=== PATIENT | male | born 1940 | race Hispanic/Latino ===

== ENCOUNTER 2020-09-25 08:33 | Day surgery (SDC) | payer MEDICARE ==
[2020-09-25] MEDS ORDERED: ASPIRIN EC 325 MG TAB PO SCH (09:30)
[2020-09-25 09:32] LABS: Hematocrit 43.8 % (35.5-45.6); Mean Corpuscular HGB Conc 34 % (32-34); Mean Corpuscular Volume 97 fl (84-94); Platelet Count 198 K/mm3 (140-440); Red Blood Count 4.53 M/mm3 (3.65-5.03); Red Cell Distribution Width 13.4 % (13.2-15.2)
[2020-09-25 09:47] LABS: BUN/Creatinine Ratio 17; Blood Urea Nitrogen 15 mg/dL (9-20); Calcium 9.3 mg/dL (8.4-10.2); Hemolysis Index 7
[2020-09-25 09:54] LABS: Partial Thromboplastin Time 30.9 Sec. (24.2-36.6)
[2020-09-25] MEDS ORDERED: SODIUM CHLORIDE 0.9% 500 ML 500 ML IV SCH (10:00)
[2020-09-25] MEDS ORDERED: HEPARIN/NS 5000 UNIT/500ML 1,000 ML IR ONE (10:53)
[2020-09-25] MEDS ORDERED: HEPARIN 10,000 UNITS/10 ML VIAL ONE (10:53)
[2020-09-25] MEDS ORDERED: MIDAZOLAM 2 MG/2 ML INJ ONE (10:54)
[2020-09-25] MEDS ORDERED: LIDOCAINE (2%) 20 MG/1 ML VIAL 20 ML MDV INFILTRATI ONE (10:54)
[2020-09-25] MEDS ORDERED: fentaNYL 100 MCG/2 ML INJ ONE (10:54)
[2020-09-25] MEDS ORDERED: VERAPAMIL 5 MG/2 ML INJ ONE (10:54)
--- NOTE | 2020-09-25 12:27 | Cardiac Catherization Report ---
INDICATION FOR PROCEDURE: The patient is a 79-year-old gentleman with a history of palpitations, underwent stress EKG performed in the office and the patient was noted to have frequent ventricular ectopy in bigeminal pattern. Stress EKG showed evidence of mild ischemia. The patient exercised for 6 minutes on standard Bill protocol, attained a heart rate of 150 beats per minute, systolic blood pressure was 222 mmHg. [address] showed mild ST-T changes suggestive of ischemia. Hence, scheduled for cardiac catheterization for definitive diagnosis and treatment. The patient is aware of the procedure, potential complications and the alternatives of therapy available. DESCRIPTION OF PROCEDURE: The patient was brought to the catheterization laboratory in a fasting condition. The patient was evaluated for moderate sedation and was felt to be appropriate candidate for moderate sedation and received IV Versed and fentanyl. Subsequently, the patient was prepared in standard fashion. Local anesthesia was given in the right wrist area and right radial artery puncture was made using 21-gauge arterial puncture needle. A 5-Jamaican slender sheath was introduced. Received 5 mg of intra-arterial verapamil and 3000 units of intravenous heparin. Subsequently, using 5-Jamaican multipurpose, left coronary angiography was performed in multiple views followed by angiograms of the right coronary artery and subsequently left ventriculogram was performed in SON projection using hand injection. At the end of the procedure, catheter and sheath were removed and good hemostasis was achieved with radial band. The patient was monitored throughout the procedure with pulse oximetry, EKG monitoring and hemodynamic monitoring. At the end of the procedure, patient is breathing normally, communicating normally with no focal deficits. The patient's moderate sedation monitoring started at 11:28 a.m. and ended at 11:45 a.m. The patient was transferred to the outpatient area in a stable condition. Findings were explained to the patient in detail. Following findings were noted. HEMODYNAMICS: 1. Opening aortic pressure 128/62. Left ventricular pressure 129/19. No gradient across the aortic valve. Estimated ejection fraction 55%. 2. Left ventriculogram done in SON projection showed normal sized left ventricle with normal contractility. End-diastolic pressure is mildly elevated. Mitral regurgitation could not be evaluated because of limited amount of dye. 3. Right coronary artery arises normally from right coronary cusp. This is a small nondominant vessel, angiographically smooth and normal. 4. Left coronary artery arises normally from left coronary cusp. This is dominant vessel. Left main, LAD and its branches, circumflex artery and its branches are angiographically smooth and normal. FINAL IMPRESSION: 1. Normal sized left ventricle with normal contractility with mildly elevated end-diastolic pressure. 2. Normal coronary anatomy angiographically. 3. Right radial artery was used for access and no untoward complications were noted. 4. The patient tolerated moderate sedation without any side effects. The patient will be continued on risk factor modification at this point and findings were explained to the patient. He understands. JOB# [id number] FAUSTO/NTS
--- NOTE | 2020-09-25 13:48 | Short Stay Summary ---
Short Stay Documentation Date of service: 09/25/20 - History H&P: obtained from office - Allergies and Medications Current Medications: Allergies No Known Allergies Allergy (Unverified 09/25/20 08:40) Home Medications Medication Instructions Recorded Confirmed Last Taken Type Aspirin [Adult Aspirin] 81 mg PO DAILY 09/25/20 09/25/20 09/24/20 History Cholecalciferol Vit D3 [Vitamin D3 1,000 unit PO QDAY 09/25/20 09/25/20 09/25/20 History 1,000 UNIT TAB] Magnesium Chloride [Slow-Mag] 64 mg PO DAILY 09/25/20 09/25/20 09/25/20 History Potassium 99 mg PO DAILY 09/25/20 09/25/20 09/25/20 History lisinopriL [Lisinopril] 20 mg PO DAILY 09/25/20 09/25/20 09/25/20 History Active Medications Aspirin (Aspirin Ec 325 Mg Tab) 325 mg PO ONCE WILLEM Stop: 09/25/20 17:00 Last Admin: 09/25/20 09:53 Dose: 325 mg Documented by: Sodium Chloride (Nacl 0.9% 500 Ml) 500 mls @ 50 mls/hr IV DIRECT WILLEM Last Admin: 09/25/20 09:59 Dose: 50 mls/hr Documented by: - Brief post op/procedure progress note Date of procedure: 09/25/20 Pre-op diagnosis: abnormal stress test Post-op diagnosis: other (normal coronaries) Anesthesia: local Estimated blood loss: none Condition: stable - Disposition Condition at discharge: Good Disposition: [id number] TO HOME OR SELFCARE - Discharge Diagnoses (1) Normal coronary arteries Status: Chronic Short Stay Discharge Plan Activity: advance as tolerated Wound: open to air, keep clean and dry, per your surgeon's advice Follow up with: MADIE WHARTON MD [Primary Care Provider] - 7 Days Forms: CardCath PCI D/C Instructions
[2020-09-25 14:23] VITALS: BP 100/56
== END 2020-09-25 15:13 | disposition home or self-care (01) ==
LOC: CATHLABREC 08:33
PROVIDERS: ATTEND Internal Medicine
DX: R94.39 Abnormal result of other cardiovascular function study (principal); R00.2 Palpitations; I10 Essential (primary) hypertension; M19.90 Unspecified osteoarthritis, unspecified site; Z98.890 Other specified postprocedural states; Z79.899 Other long term (current) drug therapy; Z79.82 Long term (current) use of aspirin; Z87.891 Personal history of nicotine dependence; Z98.49 Cataract extraction status, unspecified eye; Z82.5 Family history of asthma and other chronic lower respiratory diseases
CPT/HCPCS: 36415; 80048; 85027; 85610; 85730; 93005; 93458; 99156; C1894; J1644; J2250; J3010; J7040; Q9967